=== PATIENT | female | born 1960 | race Caucasian/White ===

== ENCOUNTER 2019-12-04 17:19 | Emergency (ER) | payer MEDICARE ==
[~2019-12-04] VITALS: Ht 160 cm; Wt 106.8 kg
[2019-12-04 17:27] VITALS: TEMP 97.8
[2019-12-04] MEDS ORDERED: MOTRIN 600600 MG/TAB PO (18:12)
[2019-12-04] MEDS ORDERED: FLEXERIL 1010 MG/TAB PO (18:12)
[2019-12-04] MEDS ORDERED: CRUTCHES MC (18:12)
[2019-12-04 18:27] VITALS: BP 135/68; PULSE 71
== END 2019-12-04 18:26 | disposition home or self-care (01) ==
LOC: COL.ER 17:19
DX: M54.32 Sciatica, left side (principal); F17.210 Nicotine dependence, cigarettes, uncomplicated; X50.0XXA Overexertion from strenuous movement or load, initial encounter

== ENCOUNTER 2019-12-10 11:18 | Emergency (ER) | payer MEDICARE ==
[~2019-12-10 11:18] MED LIST: CRUTCHES MC; FLEXERIL 1010 MG/TAB PO; MOTRIN 600600 MG/TAB PO
[2019-12-10 11:37] VITALS: TEMP 97.5
[2019-12-10] MEDS ORDERED: MEDROL 4MG DOSPA4 MG PO (12:09)
[2019-12-10 12:20] VITALS: BP 100/57; PULSE 64
== END 2019-12-10 12:20 | disposition home or self-care (01) ==
LOC: COL.ER 11:18
DX: M54.32 Sciatica, left side (principal); F17.210 Nicotine dependence, cigarettes, uncomplicated

== ENCOUNTER 2019-12-23 16:25 | Emergency (ER) | payer MEDICARE ==
[~2019-12-23] VITALS: Ht 160 cm; Wt 86.4 kg
[~2019-12-23 16:25] MED LIST changes: +MEDROL 4MG DOSPA4 MG PO
[2019-12-23 16:57] VITALS: TEMP 97.6
[2019-12-23] MEDS ORDERED: PREDNISONE20 MG PO (19:14)
[2019-12-23] MEDS ORDERED: WALKER MC ×3 (19:15→19:57)
[2019-12-23 19:19] LABS: BASO # 0.1 (0.0-0.2); BASO % 0.8 % (0.0-2.0); EOS # 0.4 (0.0-0.7); GRAN # 4.9 (1.4-6.5); GRAN % 51.5 % (42.2-75.2); HEMATOCRIT 39.4 % (37.0-47.0); HEMOGLOBIN 12.6 g/dl (12.5-16.0); LYMPH # 3.4 (1.2-3.4); LYMPH % 36.1 % (20.0-51.0); MEAN CELL VOLUME 99 fl (80.0-100.0); MEAN CORPUSCULAR HEMOGLOBIN 32 pg (27.0-31.0); MEAN CORPUSCULAR HGB CONC 32 g/dl (33.0-37.0); MEAN PLATELET VOLUME 11.2 fl (7.4-10.4); MONO # 0.7 (0.1-0.6); MONO % 7.4 % (1.7-9.3); PLATELET COUNT 214 K/mm3 (130-400); RED BLOOD COUNT 3.98 M/mm3 (4.10-5.30); REDCELL DISTRIBUTION WIDTH-CV 13.4 % (11.5-14.5)
[2019-12-23 19:24] LABS: ALBUMIN 4.5 gm/dL (3.5-5.0); BILIRUBIN,TOTAL 0.6 mg/dL (0.0-1.0); CALCIUM 9.7 mg/dL (8.4-10.2); CREATININE, serum 0.84 (0.52-1.25); POTASSIUM 4.4 mmol/L (3.4-5.0); TOTAL PROTEIN 7.6 gm/dL (6.4-8.2)
[2019-12-23 19:59] VITALS: BP 122/86; PULSE 72
== END 2019-12-23 20:07 | disposition home or self-care (01) ==
LOC: COL.ER 16:25
PROVIDERS: Emergency Medicine
DX: M54.12 Radiculopathy, cervical region (principal); M25.562 Pain in left knee; F17.210 Nicotine dependence, cigarettes, uncomplicated
CPT/HCPCS: J7512

== ENCOUNTER 2019-12-30 14:57 | Emergency (ER) | payer MEDICARE ==
[~2019-12-30] VITALS: Ht 152.4 cm; Wt 86.4 kg
[~2019-12-30 14:57] MED LIST changes: +PREDNISONE20 MG PO; +WALKER MC
[2019-12-30 15:12] VITALS: TEMP 98.4
[2019-12-30] MEDS ORDERED: NEURONTIN100 MG/CAP PO ×2 (16:26→16:30)
[2019-12-30] MEDS ORDERED: KEPPRA 500MG500 MG PO (16:26)
[2019-12-30] MEDS ORDERED: LEVOXYL0.2 MG PO (16:28)
[2019-12-30] MEDS ORDERED: FLEXERIL 1010 MG/TAB PO (16:28)
[2019-12-30] MEDS ORDERED: MOTRIN 600600 MG/TAB PO (16:29)
[2019-12-30 16:55] VITALS: BP 121/72; PULSE 71
== END 2019-12-30 16:50 | disposition home or self-care (01) ==
LOC: COL.ER 14:57
DX: M25.522 Pain in left elbow (principal); F17.210 Nicotine dependence, cigarettes, uncomplicated; Z79.52 Long term (current) use of systemic steroids

== ENCOUNTER 2021-10-12 08:25 | Emergency (ER) | payer MEDICARE ==
[~2021-10-12] VITALS: Ht 160 cm; Wt 90.9 kg
[~2021-10-12 08:25] MED LIST changes: +KEPPRA 500MG500 MG PO; +LEVOXYL0.2 MG PO; +NEURONTIN100 MG/CAP PO
[2021-10-12 08:48] VITALS: TEMP 98.3
[2021-10-12] MEDS ORDERED: FLEXERIL 1010 MG/TAB PO (09:13)
[2021-10-12] MEDS ORDERED: NORCO 325 MG-51 TAB PO (09:13)
[2021-10-12 09:53] VITALS: BP 130/81; PULSE 67
== END 2021-10-12 09:56 | disposition home or self-care (01) ==
LOC: COL.ER 08:25
DX: M25.561 Pain in right knee (principal); G89.29 Other chronic pain; Z98.890 Other specified postprocedural states; Z88.6 Allergy status to analgesic agent; Z28.310 Unvaccinated for COVID-19
CPT/HCPCS: J2360; J3010

== ENCOUNTER → 2021-12-12 | Outpatient (CLI) | payer MEDICARE ==
[~2021-12-12] MED LIST changes: +NORCO 325 MG-51 TAB PO
== END ==
LOC: COL.RAD 12:48
DX: S79.811A Other specified injuries of right hip, initial encounter (principal); X58.XXXA Exposure to other specified factors, initial encounter
CPT/HCPCS: J3301; Q9967

== ENCOUNTER 2022-05-15 18:45 | Emergency (ER) | payer MEDICARE, MEDICAID ==
[~2022-05-15] VITALS: Ht 157.5 cm; Wt 88.6 kg
[2022-05-15 20:55] VITALS: BP 113/77; PULSE 74; TEMP 98.5
== END 2022-05-15 20:55 | disposition home or self-care (01) ==
LOC: COL.ER 18:45
DX: M25.551 Pain in right hip (principal); F17.290 Nicotine dependence, other tobacco product, uncomplicated
CPT/HCPCS: J1885

== ENCOUNTER → 2023-06-24 | Emergency (ER) | payer MEDICARE, MEDICAID ==
[~2023-06-24] VITALS: Ht 160 cm; Wt 97.4 kg
[~2023-06-24] MED LIST changes: +EPIPEN 2-PAK1 MG/ML IM; +KLONOPIN 1MG1 MG PO; +LITHOBID 3300 MG/TAB PO; +MIRAPEX 1MG PO; +PEPCID 20MG TAB20 MG PO; +PREDNISONE50 MG PO; +SEROQUEL 200MG200 MG PO
[2023-06-25 01:10] VITALS: BP 114/68; PULSE 73; TEMP 98.2
== END ==
LOC: COL.ER 23:54
DX: M62.838 Other muscle spasm (principal); I10 Essential (primary) hypertension

== ENCOUNTER 2023-06-28 18:48 | Emergency (ER) | payer MEDICARE, MEDICAID ==
[~2023-06-28] VITALS: Ht 160 cm; Wt 90.9 kg
[2023-06-28 18:57] VITALS: TEMP 98.9
[2023-06-28] MEDS ORDERED: tiZANidine 4 MG TAB PO ONE (19:15)
[2023-06-28] MEDS ORDERED: Ketorolac 30 MG/ML VIAL IM ONE (19:15)
[2023-06-28] MEDS ORDERED: Acetaminophen 325 MG TAB PO ONE (19:15)
[2023-06-28 20:18] VITALS: BP 101/57; PULSE 85
== END 2023-06-28 20:18 | disposition home or self-care (01) ==
LOC: COL.ER 18:48
DX: M62.838 Other muscle spasm (principal); Z79.891 Long term (current) use of opiate analgesic; Z79.899 Other long term (current) drug therapy; Z87.891 Personal history of nicotine dependence
CPT/HCPCS: J1885

== ENCOUNTER 2023-08-11 15:29 | Emergency (ER) | payer MEDICARE, MEDICAID ==
[~2023-08-11] VITALS: Ht 157.5 cm; Wt 86.4 kg
[2023-08-11 15:38] VITALS: BP 156/107; TEMP 97.8
[2023-08-11 17:00] VITALS: PULSE 90
== END 2023-08-11 17:00 | disposition home or self-care (01) ==
LOC: COL.ER 15:29
DX: G56.21 Lesion of ulnar nerve, right upper limb (principal)

== ENCOUNTER 2023-09-21 00:47 | Emergency (ER) | payer MEDICARE, MEDICAID ==
[~2023-09-21] VITALS: Ht 160 cm; Wt 90.9 kg
[2023-09-21 00:55] VITALS: BP 120/81; PULSE 80; TEMP 98.4
[2023-09-21 02:47] LABS: BASO # 0.1 K/mm3 (0.0-0.2); EOS # 0.5 K/mm3 (0.0-0.7); GRAN # 3.9 K/mm3 (1.4-6.5); HEMOGLOBIN 11.2 g/dl (12.5-16.0); LYMPH # 2.3 K/mm3 (1.2-3.4); LYMPH % 31.2 % (20.0-51.0); MEAN CELL VOLUME 95 fl (80.0-100.0); MEAN CORPUSCULAR HEMOGLOBIN 31 pg (27-31); MEAN CORPUSCULAR HGB CONC 33 g/dl (33.0-37.0); MEAN PLATELET VOLUME 10.6 fl (7.4-10.4); MONO # 0.6 K/mm3 (0.1-0.6); MONO % 7.7 % (1.7-9.3); PLATELET COUNT 186 K/mm3 (130-400); RED BLOOD COUNT 3.63 M/mm3 (4.10-5.30); REDCELL DISTRIBUTION WIDTH-CV 12.9 % (11.5-14.5)
[2023-09-21 02:51] LABS: HEMATOCRIT 34.3 % (37.0-47.0)
[2023-09-21 03:05] LABS: ALBUMIN 3.7 g/dL (3.4-4.8); BILIRUBIN,TOTAL 0.4 mg/dL (0.2-1.2); CALCIUM 9.4 mg/dL (8.4-10.2); CREATININE, serum 1.28 mg/dL (0.57-1.11)
[2023-09-21] MEDS ORDERED: NS 50 ML IV SCH (03:15)
[2023-09-21] MEDS ORDERED: Iohexol 300 - 100 ML VIAL IV ONE (03:15)
== END 2023-09-21 04:29 | disposition home or self-care (01) ==
LOC: COL.ER 00:47
PROVIDERS: Emergency Medicine
DX: R13.10 Dysphagia, unspecified (principal)
CPT/HCPCS: Q9967

== ENCOUNTER 2023-10-22 11:54 | Emergency (ER) | payer OTHER, MEDICAID ==
[2023-10-22] MEDS ORDERED: Methocarbamol 500 MG TAB PO ONE (12:45)
[2023-10-22] MEDS ORDERED: Ibuprofen 600 MG TAB PO ONE (12:45)
[2023-10-22] MEDS ORDERED: LOPRESSOR 550 MG/TAB PO (12:53)
[2023-10-22] MEDS ORDERED: NUVIGIL200 MG PO (12:54)
[2023-10-22] MEDS ORDERED: LASIX 40MG TABL40 MG PO (12:54)
[2023-10-22] MEDS ORDERED: LITHOBID 3300 MG/TAB PO (12:55)
[2023-10-22 14:25] VITALS: BP 110/71; PULSE 71; TEMP 98.3
== END 2023-10-22 14:25 | disposition home or self-care (01) ==
LOC: COL.ER 11:54
DX: S09.90XA Unspecified injury of head, initial encounter (principal); S39.012A Strain of muscle, fascia and tendon of lower back, initial encounter; S40.011A Contusion of right shoulder, initial encounter; W19.XXXA Unspecified fall, initial encounter